=== PATIENT | female | born 1960 | race Caucasian/White ===

== ENCOUNTER 2023-05-13 12:24 | Emergency (ER) | payer SELFPAY ==
[2023-05-13 12:38] VITALS: BP 126/80; RESP 18; TEMP 36.7; O2SAT 98; BMI 17.5
--- NOTE | 2023-05-13 12:42 | XRR_ITS ---
PROCEDURE INFORMATION: Exam: XR Left Wrist Exam date and time: 05/13/2023 1:02 PM Age: 62 years old Clinical indication: Injury or trauma; Fall; Blunt trauma (contusions or hematomas); Wrist; Left TECHNIQUE: Imaging protocol: Radiologic exam of the left wrist. Views: 3 or more views. COMPARISON: No relevant prior studies available. FINDINGS: Bones/joints: There mild degenerative of the STT joint and 1st carpometacarpal joint. Soft tissues: Normal. XR/XR wrist LT min 3V* [id number] IMPRESSION: No acute fracture or dislocation. If there is high suspicion for scaphoid fracture, scaphoid view is offered for consideration.
--- NOTE | 2023-05-13 12:42 | XRR_ITS ---
PROCEDURE INFORMATION: Exam: XR Right Wrist Exam date and time: 05/13/2023 12:57 PM Age: 62 years old Clinical indication: Injury or trauma; Fall; Blunt trauma (contusions or hematomas); Wrist; Right TECHNIQUE: Imaging protocol: Radiologic exam of the right wrist. Views: 3 or more views. COMPARISON: No relevant prior studies available. FINDINGS: Bones/joints: There is a dorsally impacted distal radial fracture with intra-articular extension. There is dorsal tilt of the distal radial articular surface. Soft tissues: There is surrounding soft swelling. XR/XR wrist RT min 3V* [id number] IMPRESSION: Intra-articular impacted distal radial fracture with dorsal tilt of the articular surface.
[2023-05-13 13:49] VITALS: RESP 16; O2SAT 99
[2023-05-13] MEDS: oxyCODONE-APAP 5-325 mg Tablet 1 TAB PO (13:49)
--- NOTE | 2023-05-13 13:50 | ED_ITS ---
Documented by User: [email or web address] Shen 05/14/23 00:40 HPI - Extremity Problem General: Chief complaint: Extremity Injury, Upper Stated complaint: Right wrist pain Time Seen by Provider: 05/13/23 13:10 History of Present Illness: Follow-up for is a 62-year-old [id number] female that presents to the emergency department after a fall from standing. She reports that she fell landing on outstretched hand. She denies striking her head or loss of consciousness. She reports she had immediate pain in the right wrist She has pain in both wrists but right is greater than left. There are no open wounds but there is deformity noted to the dorsal aspect of the right wrist Review of Systems General: Reports: 10 or more systems reviewed and unremarkable except in HPI and below Physical Exam Const: COMMON NORMALS: no acute distress, patient oriented x3 and alert GENERAL APPEARANCE: cooperative ORIENTATION/CONSCIOUSNESS: Yes awake, Yes oriented to person, Yes oriented to place and Yes oriented to time Neck/C-Spine: COMMON NORMALS: full ROM GENERAL: Yes normal visual inspection Lymph: LYMPHATIC: no lymphadenopathy noted Resp: COMMON NORMALS: normal respiratory effort, No retractions, No use of accessory muscles and clear to auscultation bilaterally EFFORT & INSPECTION: Yes able to speak in complete sentences and Yes symmetric chest movement AUSCULTATION: clear to auscultation bilaterally Cardio: COMMON NORMALS: regular rate, regular rhythm and Peripheral pulses 2+ throughout RATE: regular rate RHYTHM: regular rhythm PERIPHERAL PULSES: Peripheral pulses 2+ throughout Extremity: NARRATIVE EXTREMITY EXAM: Right upper extremity: Skin is clean dry and intact Deformity noted to the dorsal aspect of the radial aspect She is nontender to palpation shoulder, humerus, elbow, proximal aspect of forearm. Tender to palpation over the wrist. Full active range of motion of shoulder and elbow Patient will not range of motion wrist due to pain She is able to give a thumbs up, make an okay sign, cross fingers, abduct fingers. She is unwilling to make a fist due to pain Sensation intact to light touch at axillary, radial, median, ulnar nerve distri bution Radial pulses palpable and cap refills less than 3 seconds Left upper extremity: Skin is clean dry and intact No deformity noted to the extremity She is nontender to palpation to the shoulder, humerus, elbow, forearm. She has some tenderness in her wrist Full active range of motion of shoulder, elbow, wrist Patient is able to give a thumbs up, make an okay sign, cross fingers, abduct fingers and make a fist Sensation intact to light touch at axillary, radial, median, ulnar nerve distribution Radial pulses palpable and cap refills less than 3 seconds GENERAL: Yes normal exam except as noted Neuro: COMMON NORMALS: patient oriented x3 SENSORIUM/ORIENTATION: Yes al ert, Yes oriented to person, Yes oriented to place and Yes oriented to time CRANIAL NERVES: Yes CN normal except as noted Psych: COMMON NORMALS: mental status grossly normal, cooperative and activity/motor behavior normal Skin: COMMON NORMALS: no wounds and turgor normal GENERAL SKIN EXAM: turgor normal Course Vital Signs: Vital signs: Vital Signs Temperature 98.0 F 05/13/23 12:38 Pulse Rate 76 05/13/23 16:09 Respiratory Rate 16 05/13/23 13:49 Blood Pressure 126/80 05/13/23 12:38 Pulse Oximetry 96 05/13/23 16:09 Oxygen Delivery Me thod Room Air 05/13/23 12:38 MDM - Extremity (Nontraumatic) Medical Decision Making Differential diagnosis includes strain, fracture, dislocation, soft tissue injury Patient underwent XR imaging of bilateral wrists XR of the right wrist reveals a distal radius fracture with intra-articular impaction and dorsal angulation. The XR of the left wrist unremarkable. Patient was treated with Percocet 5/325 Spoke with patient about the need for immobilization and follow-up. I also spoke with patient about need for bone health evaluation regarding osteoporosis. I spoke with Dr. Stern who will be happy to see the patient this week Patient immobilized with finger traps and 5 pound weight. I allowed her hand that way for about 20 minutes. She reports that there was improvement in her symptoms. A short arm splint was applied with 2 point molding to hopefully maintain the reduction. Patient tolerated well. A repeat XR of the wrist was obtained. Imaging reveals improved alignment and adequate reduction.. Patient cleared for discharge Lab Data Radiology Impressions Wrist X-Ray 05/13/23 16:07 IMPRESSION: Post closed reduction and casting of the distal radial fracture with near anatomical alignment. Discharge Plan Discharge Patient Disposition: Home Clinical Impression: Fracture of wrist Condition: Stable Prescriptions: New hydrocodone-acetaminophen 5-325 mg tablet 1 tab PO Q6H PRN (Reason: pain) Qty: 30 0RF Discharge Orders: Discharge ED (Routine); Ordered 05/13/23 Ordered By: Yvonne Gerber Discharge Diet: Advance as tolerated Discharge Activity: Limit activity as instructed Patient Instructions: Wrist Fracture in Adults (ED), Osteoporosis (ED), Splint Care (ED), Closed Reduction (ED), Opioid Safety, Pain Management Activity Restrictions/Additional Instructions: Follow-up with Dr. Stern this week. Call for an appointment. You have a distal radius fracture. You have been placed in a splint. Please keep this clean dry and intact We have prescribed you Magnolia to take as needed for severe pain. In the interim use nonsteroidal anti-inflammatory drugs like ibuprofen or naproxen. Can also use Tylenol. Keep the extremity elevated and iced. This will help with swelling No lifting pushing or pulling with this hand. 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 [employer] Documented by User: Brooks Bang 05/13/23 17:43 HPI - Extremity Problem General: Chief complaint: Extremity Injury, Upper Stated complaint: Right wrist pain Time Seen by Provider: 05/13/23 13:10 Course Vital Signs: Vital signs: Vital Signs Temperature 98.0 F 05/13/23 12:38 Pulse Rate 76 05/13/23 16:09 Respiratory Rate 16 05/13/23 13:49 Blood Pressure 126/80 05/13/23 12:38 Pulse Oximetry 96 05/13/23 16:09 Oxygen Delivery Me thod Room Air 05/13/23 12:38 MDM - Extremity (Nontraumatic) Lab Data Radiology Impressions Wrist X-Ray 05/13/23 16:07 IMPRESSION: Post closed reduction and casting of the distal radial fracture with near anatomical alignment. All radiology interpretation(s) finalized by discharge Discharge Plan Discharge Patient Disposition: Home Clinical Impression: Fracture of wrist Condition: Stable Prescriptions: New hydrocodone-acetaminophen 5-325 mg tablet 1 tab PO Q6H PRN (Reason: pain) Qty: 30 0RF Discharge Orders: Discharge ED (Routine); Ordered 05/13/23 Ordered By: Yvonne Gerber Discharge Diet: Advance as tolerated Discharge Activity: Limit activity as instructed Patient Instructions: Wrist Fracture in Adults (ED), Osteoporosis (ED), Splint Care (ED), Closed Reduction (ED), Opioid Safety, Pain Management Activity Restrictions/Additional Instructions: Follow-up with Dr. Stern this week. Call for an appointment. You have a distal radius fracture. You have been placed in a splint. Please keep this clean dry and intact We have prescribed you Magnolia to take as needed for severe pain. In the interim use nonsteroidal anti-inflammatory drugs like ibuprofen or naproxen. Can also use Tylenol. Keep the extremity elevated and iced. This will help with swelling No lifting pushing or pulling with this hand. 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 Patricia Marin
--- NOTE | 2023-05-13 16:07 | XRR_ITS ---
PROCEDURE INFORMATION: Exam: XR Right Wrist Exam date and time: 05/13/2023 4:26 PM Age: 62 years old Clinical indication: Injury or trauma; Fall; Blunt trauma (contusions or hematomas); Wrist; Right; Additional info: Postreduction/splinting TECHNIQUE: Imaging protocol: Radiologic exam of the right wrist. Views: 1 or 2 views. COMPARISON: CR (UP EXM, ) 05/13/2023 12:57 PM FINDINGS: Bones/joints: Images obtained in cast obscuring fine bony details. Post closed reduction of the distal radial fracture with improved alignment. Soft tissues: Normal. XR/XR wrist RT 2V [id number] IMPRESSION: Post closed reduction and casting of the distal radial fracture with near anatomical alignment.
[2023-05-13 16:09] VITALS: PULSE 76; O2SAT 96
== END 2023-05-13 16:53 | disposition home or self-care (01) ==
PROVIDERS: Emergency Provider Nurse Practitioner
DX: S52.571A Other intraarticular fracture of lower end of right radius, initial encounter for closed fracture (principal); W18.39XA Other fall on same level, initial encounter
CPT/HCPCS: 25605; 29125; 73100; 73110; 99283

== ENCOUNTER → 2023-05-16 08:02 | Outpatient (BNVA) | payer SELFPAY | PROVIDERS: Referring Provider Nurse Practitioner; Visit Provider Orthopaedic Surgery | DX: S52.591A Other fractures of lower end of right radius, initial encounter for closed fracture (principal); W19.XXXA Unspecified fall, initial encounter | CPT/HCPCS: 73110 ==

== ENCOUNTER → 2023-05-23 08:05 | Outpatient (BNVA) | payer SELFPAY | PROVIDERS: Visit Provider Orthopaedic Surgery | DX: S52.501D Unspecified fracture of the lower end of right radius, subsequent encounter for closed fracture with routine healing (principal); X58.XXXD Exposure to other specified factors, subsequent encounter | CPT/HCPCS: 73110 ==

== ENCOUNTER 2023-05-23 10:54 | Outpatient (CLI) | payer SELFPAY | END 2023-05-23 10:55 | disposition home or self-care (01) | LOC: SPT 10:54 | PROVIDERS: Visit Provider Orthopaedic Surgery | DX: Z46.89 Encounter for fitting and adjustment of other specified devices (principal); S52.591D Other fractures of lower end of right radius, subsequent encounter for closed fracture with routine healing; X58.XXXD Exposure to other specified factors, subsequent encounter | CPT/HCPCS: 97760; L3982 ==

== ENCOUNTER → 2023-06-20 10:31 | Outpatient (BNVA) | payer SELFPAY | PROVIDERS: Visit Provider Orthopaedic Surgery | DX: S52.531D Colles' fracture of right radius, subsequent encounter for closed fracture with routine healing; X58.XXXD Exposure to other specified factors, subsequent encounter | CPT/HCPCS: 73110 ==